=== PATIENT | male | born 1980 | race Caucasian/White ===

== ENCOUNTER 2016-12-09 17:23 | Emergency (ER) | payer MEDICAID, OTHER ==
[2015-03-15 08:28] VITALS: BMI 23.2
[2016-12-09 17:43] VITALS: BP 121/78; PULSE 77; RESP 17; TEMP 97.9; O2SAT 100
--- NOTE | 2016-12-09 18:54 | C.PDOC ---
History Of Present Illness 36 year old male who presents to the ER with a complaint of a red rash to his penis glans for the past few days. Patient states he had the same problem before and used clotrimazole and had relief of symptoms. Patient denies being diabetic, penile discharge, or urinary symptoms. Time Seen by Provider: 12/09/16 17:52 Chief Complaint (Nursing): Male Genitourinary History Per: Patient History/Exam Limitations: no limitations Onset/Duration Of Symptoms: Days Current Symptoms Are (Timing): Still Present Associated Symptoms: denies: Urinary Symptoms Alleviating Factors: None Recent travel outside of the [place]: No Past Medical History Reviewed: Historical Data, Nursing Documentation, Vital Signs Vital Signs: Last Vital Signs Temp 97.9 F 12/09/16 17:40 Pulse 77 12/09/16 17:40 Resp 17 12/09/16 17:40 BP 121/78 12/09/16 17:40 Pulse Ox 100 12/09/16 18:55 - Medical History PMH: No Chronic Diseases Surgical History: No Surg Hx Family History: States: Unknown Family Hx - Social History Hx Alcohol Use: No Hx Substance Use: No - Immunization History Hx Influenza Vaccination: No Review Of Systems Genitourinary: Positive for: Rash. Negative for: Dysuria, Hematuria, Penile Discharge Physical Exam - Physical Exam Appears: Non-toxic, No Acute Distress Skin: Warm, Dry Head: Atraumatic, Normacephalic Oral Mucosa: Moist Chest: Symmetrical, No Tenderness Cardiovascular: Rhythm Regular, No Murmur Respiratory: Normal Breath Sounds, No Rales, No Rhonchi, No Wheezing Male Genital: Other (Erythematous rash on glans) Neurological/Psych: Oriented x3, Normal Speech, Normal Cognition ED Course And Treatment O2 Sat by Pulse Oximetry: 100 (Room air) Pulse Ox Interpretation: Normal Progress Note: Finger stick done in ER which showed glucose of 94; patient given Rx and discharged home. Disposition - Disposition Disposition: HOME/ ROUTINE Disposition Time: 18:51 Condition: STABLE Additional Instructions: Follow up with PMD within 1-2 days. Return to ED if feel worse. Prescriptions: Clotrimazole/Betamethasone [Lotrisone] 1 appl EXT BID #45 g Instructions: Antifungals (On the skin) Print Language: CZECH - Clinical Impression Clinical Impression: Fungal infection - Scribe Statement The provider has reviewed the documentation as recorded by the Scribdelfina Yen All medical record entries made by the Anelibdelfina were at my direction and personally dictated by me. I have reviewed the chart and agree that the record accurately reflects my personal performance of the history, physical exam, medical decision making, and the department course for this patient. I have also personally directed, reviewed, and agree with the discharge instructions and disposition.
== END 2016-12-09 19:11 | disposition home or self-care (01) ==
LOC: C.ER 17:23
DX: B48.8 Other specified mycoses (principal)

== ENCOUNTER 2017-03-03 16:41 | Emergency (ER) | payer OTHER ==
[2017-03-03 16:41] VITALS: BMI 23.2
[2017-03-03 16:49] VITALS: BP 130/75; PULSE 88
[2017-03-03] MEDS ORDERED: Sodium Chloride 0.9% 1,000 ML IV ONE (17:14)
[2017-03-03 17:32] LABS: BASO % 0.3 % (0.0-2.0); EOS # 0.1 K/uL (0.0-0.7); EOS % 1.4 % (0.0-4.0); HEMATOCRIT 48.4 % (35.0-51.0); LYMPH # 1.9 K/uL (1.0-4.3); LYMPH % 17.7 % (20.0-40.0); MEAN CELL VOLUME 91.7 fL (80.0-94.0); MEAN CORPUSCULAR HEMOGLOBIN 31.2 pg (27.0-31.0); MEAN CORPUSCULAR HGB CONC 34.1 g/dL (33.0-37.0); MEAN PLATELET VOLUME 8.7 fL (7.2-11.7); MONO # 0.6 K/uL (0.0-0.8); MONO % 6.1 % (0.0-10.0); RED CELL DISTRIBUTION WIDTH 13.9 % (11.5-14.5); WHITE BLOOD COUNT 10.6 K/uL (4.8-10.8)
[2017-03-03 17:38] LABS: RBC URINE 4 /hpf (0-3); URINE BILIRUBIN NEGATIVE (NEGATIVE); URINE BLOOD 1+ (NEGATIVE); URINE COLOR Yellow (YELLOW); URINE GLUCOSE (UA) NORMAL (Normal); URINE KETONE NEGATIVE (NEGATIVE); URINE LEUKOCYTE ESTERASE NEG Leu/uL (Negative); URINE PROTEIN NEGATIVE (NEGATIVE)
[2017-03-03 17:39] LABS: CHLORIDE 102 mmol/L (98-107)
[2017-03-03 17:40] LABS: POTASSIUM 3.8 mmol/L (3.6-5.2); SODIUM 139 mmol/L (132-148)
[2017-03-03 17:42] LABS: ALB/GLOB RATIO 1.1 (1.0-2.1); BILIRUBIN,TOTAL 0.9 mg/dL (0.2-1.3); CARBON DIOXIDE 25 mmol/L (22-30); GFR AFRICAN-AMERICAN > 60; TOTAL PROTEIN 8.8 g/dL (6.3-8.3)
[2017-03-03 17:43] LABS: ALKALINE PHOSPHATASE 71 U/L (38-126); ALT/SGPT 74 U/L (21-72); AST/SGOT 32 U/L (17-59); BLOOD UREA NITROGEN 15 mg/dL (9-20); CALCIUM 9.6 mg/dl (8.6-10.4); GLUCOSE,RANDOM 96 mg/dL (75-110)
--- NOTE | 2017-03-03 18:06 | C.PDOC ---
History Of Present Illness 36 year old male presents to the ED with complaints of left flank pain for approximately 3/4 weeks accompanied by mild dysuria, also malodorous urine for the past couple of days. Patient has no prior history of kidney stones. He denies vomit, nausea, appetite change, hematuria, or blood in the stool. Chief Complaint (Nursing): Abdominal Pain History Per: Patient History/Exam Limitations: no limitations Onset/Duration Of Symptoms: Persistent Current Symptoms Are (Timing): Still Present Location Of Pain/Discomfort: Other (left flank) Radiation Of Pain To:: None Quality Of Discomfort: "Pain" Associated Symptoms: Urinary Symptoms (malodorous urine). denies: Fever, Chills , Nausea, Vomiting, Loss Of Appetite Recent travel outside of the [place]: No Additional History Per: Patient Past Medical History Reviewed: Historical Data, Nursing Documentation, Vital Signs Vital Signs: Last Vital Signs Temp 98.3 F 03/03/17 19:34 Pulse 88 03/03/17 19:34 Resp 17 03/03/17 19:34 BP 130/75 03/03/17 16:46 Pulse Ox 99 03/03/17 19:34 - Medical History PMH: No Chronic Diseases Denies: Chronic Kidney Disease Surgical History: No Surg Hx Family History: States: Unknown Family Hx - Social History Hx Alcohol Use: Yes Hx Substance Use: No - Immunization History Hx Influenza Vaccination: No Review Of Systems Constitutional: Negative for: Fever, Chills Gastrointestinal: Negative for: Nausea, Vomiting, Abdominal Pain, Hematemesis Genitourinary: Negative for: Dysuria, Hematuria Musculoskeletal: Positive for: Back Pain (left flank) Neurological: Negative for: Weakness, Numbness Physical Exam - Physical Exam Appears: Non-toxic, No Acute Distress Skin: Normal Color, Warm, Dry Head: Atraumatic, Normacephalic Oral Mucosa: Moist Neck: Normal, Supple Gastrointestinal/Abdominal: Soft, No Tenderness, No Guarding, No Rebound Back: CVA Tenderness (left mild) Extremity: Normal ROM, No Pedal Edema, No Calf Tenderness, Capillary Refill ( less than 2 seconds), No Deformity Neurological/Psych: Oriented x3, Normal Speech, Normal Cognition ED Course And Treatment - Laboratory Results Result Diagrams: 03/03/17 17:27 03/03/17 17:27 O2 Sat by Pulse Oximetry: 100 (On RA) Pulse Ox Interpretation: Normal - CT Scan/US CT abdo/Pelvis Other Rad Studies (CT/US): Interpreted By Me, Read By Radiologist, Radiology Report Reviewed CT/US Interpretation: IMPRESSION: 1. No acute findings. No renal, ureteral or bladder calculi. No hydronephrosis. No hydroureter. 2. Hepatic steatosis Medical Decision Making Medical Decision Making: Impression : 36 y/o male presents with left flank pain for the 3/4 weeks and malodorous urine for the past couple of days. Plan : * CT abdo/pelvis ordered * Blood work ordered * Pepcid 20 mg IVP, Toradol 30 mg IVP and Zofran 4mg IVP administered * Urine culture collected Disposition - Disposition Referrals: [facility] Romario Neely, [Non-Staff] - Disposition: HOME/ ROUTINE Disposition Time: 18:20 Condition: GOOD Additional Instructions: Thank you for letting us take care of you today. Your provider was Dr. Mckeon. The emergency medical care you received today was directed at your acute symptoms. If you were prescribed any medication, please fill it and take as directed. It may take several days for your symptoms to resolve. Return to the Emergency Department if your symptoms worsen, do not improve, or if you have any other problems. Please contact your doctor or call one of the physicians/clinics you have been referred to that are listed on the Patient Visit Information form that is included in your discharge packet. Bring any paperwork you were given at discharge with you along with any medications you are taking to your follow up visit. Our treatment cannot replace ongoing medical care by a primary care provider (PCP) outside of the emergency department. Thank you for allowing the [facility] team to be part of your care today. You had an STI test: It will take 48 hours for the results. Please call after 1 week if you have not heard back. Follow up with your doctor in 3-4 days for re-evaluation and further management. Prescriptions: Ciprofloxacin [Cipro] 500 mg PO BID #14 tab Diphenhydramine HCl/Zinc Acet [Benadryl Itch Stopping Crm] 28.3 gm TP BID PRN # 1 cream..g. PRN Reason: Itching / Pruritus Ibuprofen [Motrin] 600 mg PO Q6 PRN #20 tab PRN Reason: Pain, Moderate (4-7) Instructions: Abdominal Pain (ED) Forms: [employer] (Kyrgyz) - Clinical Impression Clinical Impression: Abdominal pain - Scribe Statement The provider has reviewed the documentation as recorded by the Scribe Bakari French All medical record entries made by the Scribe were at my direction and personally dictated by me. I have reviewed the chart and agree that the record accurately reflects my personal performance of the history, physical exam, medical decision making, and the department course for this patient. I have also personally directed, reviewed, and agree with the discharge instructions and disposition.
--- NOTE | 2017-03-03 18:20 | CT ---
EXAM: CT Abdomen and Pelvis Without Intravenous Contrast EXAM DATE/TIME: Exam ordered 03/03/2017 5:42 PM CLINICAL HISTORY: 36 years old, male; Pain; Abdominal pain; Flank; Left; Additional info: Left flank pain TECHNIQUE: Axial computed tomography images of the abdomen and pelvis without intravenous contrast. All CT scans at this facility use one or more dose reduction techniques, viz.: automated exposure control; ma/kV adjustment per patient size (including targeted exams where dose is matched to indication; i.e. head); or iterative reconstruction technique. Coronal and sagittal reformatted images were created and reviewed. COMPARISON: No relevant prior studies available. FINDINGS: Lower thorax: No acute findings. ABDOMEN: Liver: The liver is low in density. Gallbladder and bile ducts: Unremarkable. No calcified stones. No ductal dilation. Pancreas: Unremarkable. No ductal dilation. Spleen: Unremarkable. No splenomegaly. Adrenals: Unremarkable. No mass. Kidneys and ureters: Unremarkable. No obstructing stones. No hydronephrosis. Stomach and bowel: Unremarkable. No obstruction. No mucosal thickening. Appendix: No findings to suggest acute appendicitis. PELVIS: Bladder: Unremarkable. No stones. Reproductive: Unremarkable as visualized. ABDOMEN and PELVIS: Intraperitoneal space: Unremarkable. No free air. No significant fluid collection. Bones/joints: No acute fracture. No dislocation. Soft tissues: Unremarkable. Vasculature: Unremarkable. No abdominal aortic aneurysm. Lymph nodes: Unremarkable. No enlarged lymph nodes. IMPRESSION: 1. No acute findings. No renal, ureteral or bladder calculi. No hydronephrosis. No hydroureter. 2. Hepatic steatosis.
[2017-03-03 19:34] VITALS: RESP 17; TEMP 98.3
[2017-03-03 23:25] VITALS: O2SAT 100
== END 2017-03-03 19:34 | disposition home or self-care (01) ==
LOC: C.ER 16:41
DX: R10.9 Unspecified abdominal pain (principal)

== ENCOUNTER 2017-12-04 20:49 | Emergency (ER) | payer OTHER ==
[2017-12-04 20:51] VITALS: BMI 23.2
[2017-12-04 21:23] VITALS: BP 134/76; PULSE 67; RESP 20; TEMP 98.8; O2SAT 98
[2017-12-04] MEDS ORDERED: Tmp-Smz 800 mg-160 mg DS Tab PO STA (21:29)
[2017-12-04] MEDS ORDERED: Lidocaine 2% Inj (20ml) INFIL ONE (21:29)
--- NOTE | 2017-12-04 21:30 | C.PDOC ---
History Of Present Illness Patient complains of lump to left groin area noticed yesterday. Today area is larger and painful to touch. Denies fever, urinary symptoms, testicular pain or swelling, penile discharge, abdominal pain. Time Seen by Provider: 12/04/17 21:26 Chief Complaint (Nursing): Male Genitourinary History Per: Patient History/Exam Limitations: no limitations Onset/Duration Of Symptoms: Days Current Symptoms Are (Timing): Still Present Recent travel outside of the [place]: No Past Medical History Reviewed: Historical Data, Nursing Documentation, Vital Signs Vital Signs: Last Vital Signs Temp 98.8 F 12/04/17 21:17 Pulse 67 12/04/17 21:17 Resp 20 12/04/17 21:17 BP 134/76 12/04/17 21:17 Pulse Ox 98 12/04/17 22:41 Surgical History: No Surg Hx Family History: States: Unknown Family Hx - Social History Hx Alcohol Use: Yes Hx Substance Use: No - Immunization History Hx Influenza Vaccination: No Review Of Systems Except As Marked, All Systems Reviewed And Found Negative. Constitutional: Negative for: Fever Gastrointestinal: Negative for: Abdominal Pain Genitourinary: Negative for: Dysuria, Hematuria, Penile Discharge, Scrotal Pain (or swelling) Skin: Positive for: Other (Lump to left groin area) Physical Exam - Physical Exam Appears: Non-toxic Skin: Warm, Dry Head: Atraumatic, Normacephalic Eye(s): bilateral: Normal Inspection Neck: Normal ROM Chest: Symmetrical Gastrointestinal/Abdominal: Soft, No Tenderness, No Distention, No Guarding Male Genital: Other (2x1cm fluctuant mass to left inguinal area by scrotum) Extremity: Bilateral: Atraumatic, Normal ROM Neurological/Psych: Oriented x3, Normal Speech ED Course And Treatment O2 Sat by Pulse Oximetry: 98 (Room air) Pulse Ox Interpretation: Normal - Incision & Drainage Of Abscess Anesthesia: Lidocaine 2% Prep Used: Betadine Procedure: Incised W/Scalpel Blade#: (11), Drained Pus, Irrigated Cavity W/ Saline, Probed To Break Up Loculations, Cultures Obtained And Sent To Lab Medical Decision Making Medical Decision Making: abscess of left groin area. Obtain verbal consent for I&D. Patient tolerated procedure well. Bactrim PO given. Culture sent to lab. Disposition Counseled Patient/Family Regarding: Diagnosis, Need For Followup, Rx Given - Disposition Referrals: Liliya Silva MD [Staff Provider] - Disposition: HOME/ ROUTINE Disposition Time: 21:39 Condition: STABLE Additional Instructions: Cambiar el vendaje dos veces al da [place] Tylenol o Motrin para el dolor. 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 - Scribe Statement The provider has reviewed the documentation as recorded by the Scribe Jason Yen All medical record entries made by the Scribe were at my direction and personally dictated by me. I have reviewed the chart and agree that the record accurately reflects my personal performance of the history, physical exam, medical decision making, and the department course for this patient. I have also personally directed, reviewed, and agree with the discharge instructions and disposition.
[2017-12-04] MEDS ORDERED: Tmp-Smz 800 mg-160 mg DS Tab ONE (21:37)
== END 2017-12-04 21:59 | disposition home or self-care (01) ==
LOC: C.ER 20:49
DX: L02.214 Cutaneous abscess of groin (principal)

== ENCOUNTER 2018-01-20 13:43 | Emergency (ER) | payer OTHER ==
[2018-01-20 13:44] VITALS: BMI 23.2
[2018-01-20 13:53] VITALS: BP 145/91; PULSE 90; RESP 16; TEMP 98; O2SAT 97
--- NOTE | 2018-01-20 14:25 | C.PDOC ---
History Of Present Illness 37 year old male comes in with partner complaining of sore throat associated with a subjective fever and generalized weakness for the past 3 days. of note, patient's partner came in with him complaining of similar symptoms. Denies chills, nausea, vomiting, numbness. Time Seen by Provider: 01/20/18 13:53 Chief Complaint (Nursing): ENT Problem History Per: Patient History/Exam Limitations: None Onset/Duration Of Symptoms: Days Current Symptoms Are (Timing): Still Present Past Medical History Reviewed: Historical Data, Nursing Documentation, Vital Signs Vital Signs: Last Vital Signs Temp 98 F 01/20/18 13:50 Pulse 90 01/20/18 13:50 Resp 16 01/20/18 13:50 BP 145/91 H 01/20/18 13:50 Pulse Ox 97 01/20/18 17:18 - Medical History PMH: Denies: Chronic Kidney Disease Surgical History: No Surg Hx Family History: States: No Known Family Hx - Social History Hx Alcohol Use: Yes Hx Substance Use: No - Immunization History Hx Influenza Vaccination: No Review Of Systems Except As Marked, All Systems Reviewed And Found Negative. Constitutional: Positive for: Fever, Weakness. Negative for: Chills ENT: Positive for: Throat Pain (sore) Gastrointestinal: Negative for: Nausea, Vomiting Neurological: Negative for: Numbness Physical Exam - Physical Exam Appears: Non-toxic, No Acute Distress Skin: Warm, Dry Head: Atraumatic, Normacephalic Eye(s): bilateral: Normal Inspection, PERRL, EOMI Ear(s): Bilateral: Normal Oral Mucosa: Moist Throat: Erythema (pharyngeal), No Exudate, No Drooling, Other (uvula midline) Neck: Supple Lymphatic: Other (submandibular lymphadenopathy) Chest: Symmetrical Cardiovascular: Rhythm Regular Respiratory: Normal Breath Sounds, No Rales, No Rhonchi, No Wheezing Gastrointestinal/Abdominal: Soft, No Tenderness Neurological/Psych: Oriented x3, Normal Speech, Normal Cognition Gait: Steady ED Course And Treatment O2 Sat by Pulse Oximetry: 97 (RA) Pulse Ox Interpretation: Normal Progress Note: Plan: Amoxil, Ibuprofen ordered. Disposition - Disposition Referrals: Selvin Chamberlain MD [Medical Doctor] - Disposition: HOME/ ROUTINE Disposition Time: 14:22 Condition: STABLE Additional Instructions: Follow up with PMD within 1-2 days. Return to ED if feel worse. 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 - Scribe Statement The provider has reviewed the documentation as recorded by the Anelibe Emre Kaminski All medical record entries made by the Marisa were at my direction and personally dictated by me. I have reviewed the chart and agree that the record accurately reflects my personal performance of the history, physical exam, medical decision making, and the department course for this patient. I have also personally directed, reviewed, and agree with the discharge instructions and disposition.
== END 2018-01-20 14:41 | disposition home or self-care (01) ==
LOC: C.ER 13:43
DX: J02.9 Acute pharyngitis, unspecified (principal)

== ENCOUNTER 2018-04-09 20:46 | Emergency (ER) | payer OTHER ==
[2018-04-09 20:46] VITALS: BMI 23.2
[2018-04-09 20:57] VITALS: BP 129/90; PULSE 100; RESP 18; TEMP 97.3; O2SAT 97
--- NOTE | 2018-04-09 21:50 | C.PDOC ---
History Of Present Illness 37 year old male presents to the ER with a complaint of a swollen pimple to the upper lip for the past 3 days that has worsened today. Patient reports having associated subjective fever, as per relative patient had some minimal drainage but is unsure if it was saliva or drainage. Denies headache, gingival pain, or dental pain. Time Seen by Provider: 04/09/18 21:13 Chief Complaint (Nursing): Abnormal Skin Integrity History Per: Patient History/Exam Limitations: no limitations Onset/Duration Of Symptoms: Days (3) Current Symptoms Are (Timing): Still Present Location Of Injury: Anterior: Face Quality Of Symptoms: Painful, Swollen, Draining Recent travel outside of the [place]: No Past Medical History Reviewed: Historical Data, Nursing Documentation, Vital Signs Vital Signs: Last Vital Signs Temp 97.3 F L 04/09/18 20:55 Pulse 100 H 04/09/18 20:55 Resp 18 04/09/18 20:55 BP 129/90 04/09/18 20:55 Pulse Ox 97 04/09/18 20:55 - Medical History PMH: Denies: Chronic Kidney Disease Family History: States: Unknown Family Hx - Social History Hx Alcohol Use: Yes Hx Substance Use: No - Immunization History Hx Influenza Vaccination: No Review Of Systems Constitutional: Positive for: Fever (Subjective). Negative for: Chills ENT: Positive for: Other (Upper lip swelling). Negative for: Mouth Pain Musculoskeletal: Negative for: Neck Pain Neurological: Negative for: Headache Physical Exam - Physical Exam Appears: Non-toxic Skin: Normal Color, Warm, Dry Head: Atraumatic, Normacephalic Eye(s): bilateral: Normal Inspection Nose: Normal Oral Mucosa: Moist, No Drooling, No Other (elevation of floor of mouth) Tongue: No Swelling Lips: Other (Small scabby lesion to border of right upper lip with erythema at the base, localized induration, and tenderness, non fluctuant , no drainage. ) Teeth: Normal Dentition, No Tender To Palpation Gingiva: Normal Appearing, No Swelling, No Tender Throat: Normal, No Erythema, No Exudate Neck: Normal, Supple, No Other (Swelling) Neurological/Psych: Oriented x3, Normal Speech ED Course And Treatment O2 Sat by Pulse Oximetry: 97 (Room air) Pulse Ox Interpretation: Normal Progress Note: Patient is resting comfortably in the ER in no acute distress, vitals are stable, explained to patient that there is no indication for I&D at this time, will start on keflex and bactrim and advise to follow up for wound check. Disposition Counseled Patient/Family Regarding: Diagnosis, Need For Followup - Disposition Referrals: [facility] [Outside] Disposition: HOME/ ROUTINE Disposition Time: 21:47 Condition: STABLE Additional Instructions: Please follow up with PMD or ED in 2 days for wound check Take medications as directed Return to ER if worse Prescriptions: Acyclovir 5% [Zovirax 5% Oint] 15 applic EXT Q3H #1 tube Cephalexin [cephalexin] 1,000 mg PO BID #20 cap Sulfamethoxazole/Trimethoprim [Bactrim DS 800 mg-160 mg] 1 tab PO BID #14 tab Instructions: Boil (DC), Cold Sores (Oral Herpes) (DC) Forms: [employer] (Solomon Islander) Print Language: TAIWANESE - POA Present On Arrival: None - Clinical Impression Clinical Impression: Abscess, lip, Herpes simplex labialis - 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 - Scribe Statement The provider has reviewed the documentation as recorded by the Anelibdelfina Yen All medical record entries made by the Marisa were at my direction and personally dictated by me. I have reviewed the chart and agree that the record accurately reflects my personal performance of the history, physical exam, medical decision making, and the department course for this patient. I have also personally directed, reviewed, and agree with the discharge instructions and disposition.
[2018-04-09] MEDS ORDERED: Tmp-Smz 800 mg-160 mg DS Tab ONE (22:05)
[2018-04-09] MEDS ORDERED: Tmp-Smz 800 mg-160 mg DS Tab PO STA (22:08)
== END 2018-04-09 22:11 | disposition home or self-care (01) ==
LOC: C.ER 20:46
DX: K13.0 Diseases of lips (principal); B00.1 Herpesviral vesicular dermatitis

== ENCOUNTER 2018-04-11 14:03 | Emergency (ER) | payer OTHER ==
[2018-04-11 14:04] VITALS: BMI 23.2
[2018-04-11 14:22] VITALS: BP 123/77; PULSE 85; RESP 19; TEMP 97.9; O2SAT 97
[2018-04-11] MEDS ORDERED: Amoxicillin-Clav 875-125 mg Tab PO ONE (15:14)
[2018-04-11] MEDS ORDERED: Amoxicillin-Clav 875-125 mg Tab PO STA (15:15)
--- NOTE | 2018-04-11 15:19 | C.PDOC ---
History Of Present Illness 37 year old male presents to the ED for evaluation of right sided upper lip swelling for 5 days. Patient reports ED visit 2 days ago for same, was prescribed Keflex and Bacitracin, which he has been taking, with worsening of swelling. pt reports low grade fevers. pt has not applied warm compresses to the area. Denies any swelling in mouthy or difficulty swallowing. Time Seen by Provider: 04/11/18 14:39 Chief Complaint (Nursing): Abnormal Skin Integrity History Per: Patient History/Exam Limitations: no limitations, language barrier (Voe molder feeder) Onset/Duration Of Symptoms: Days Current Symptoms Are (Timing): Still Present Location Of Injury: Right: Face (upper lip) Quality Of Symptoms: Painful, Swollen Severity: Moderate Past Medical History Reviewed: Historical Data, Nursing Documentation, Vital Signs Vital Signs: Last Vital Signs Temp 97.9 F 04/11/18 14:18 Pulse 85 04/11/18 14:18 Resp 19 04/11/18 14:18 BP 123/77 04/11/18 14:18 Pulse Ox 97 04/11/18 14:18 - Medical History PMH: No Chronic Diseases Denies: Chronic Kidney Disease Family History: States: Unknown Family Hx - Social History Hx Alcohol Use: Yes Hx Substance Use: No - Immunization History Hx Tetanus Toxoid Vaccination: No Hx Influenza Vaccination: No Hx Pneumococcal Vaccination: No Review Of Systems Constitutional: Positive for: Fever (low grade- 99.5 per pt) Eyes: Negative for: Pain ENT: Positive for: Mouth Pain, Mouth Swelling, Other (right-sided upper lip swelling.). Negative for: Ear Pain, Nose Pain, Throat Pain Musculoskeletal: Negative for: Neck Pain Skin: Positive for: Other (right upper lip) Physical Exam - Physical Exam Appears: Non-toxic, No Acute Distress, Other (uncomfortable) Skin: Warm, Dry, Other (marked swelling to right side upper lip with dried whitish-yellow substance on outside, exquisitely tender, firm. erythema extends proximally towards right nare. ) Head: Atraumatic, Normacephalic Eye(s): bilateral: Normal Inspection Oral Mucosa: Moist Lips: Erythema (to the right side of the upper lip. ) Neck: Supple Neurological/Psych: Oriented x3, Normal Speech, Normal Cognition ED Course And Treatment O2 Sat by Pulse Oximetry: 97 (RA) Pulse Ox Interpretation: Normal Medical Decision Making Medical Decision Making: Plan: I didn't treat pt on first ED visit; however I did pass by him in Fast Track Area and noticed lip swelling. Compared to first ED visit, swelling has markedly increased, and pt now reports low grade fevers. Thus, pt has failed outpatient antibiotic therapy and advised admission for iv antibiotics and surgical consult. Dangers of spreading facial cellulitis explained to patient via molder feeder with present. Patient declines admission, wants a 'stronger' oral antibiotic and to go home. pt was advised he was able to leave, but would be AMA and risks and consequences of leaving including worsening cellulitis, further spread of infection to face, sinuses, brain, sepsis, disability and , explained to patient and via molder feeder #[id number]. pt advised he may return at any time. I will d/c keflex and add augmentin, recomme nd warm compresses and plastic surgery follow up. pt and understand. The patient declines admission, and wishes to leave the Emergency Department. This action is against my medical advice to the patient and the decision was made with informed refusal. The patient was told that admission is necessary and a full explanation of the rationale was given. The risks of leaving were explained to the patient and include, but are not limited to, worsening of known or currently unknown conditions, permanent disability and from undiagnosed or untreated conditions The patient has the capacity to make this informed decision and understands the clinical situation and my explanation of the risks of leaving. The patient voluntarily accepts these risks, and a signed AMA form documenting our conversation was obtained. The patient was given the opportunity to ask questions and reconsider. The patient was encouraged to return to the Emergency Department at any time for further care. Disposition Counseled Patient/Family Regarding: Diagnosis, Need For Followup, Rx Given - Disposition Referrals: Riley Cain MD [Staff Provider] - Disposition: AGAINST MEDICAL ADVICE Disposition Time: 15:20 Condition: STABLE Additional Instructions: Vivienne antibiticos segn lo prescrito. Tylenol o Motrin para la fiebre o el dolor. Compresas tibias en los labios 4 veces al da ayo 15-20 minutos. En colaboracin con el cirujano plstico Dr. Cain, llame a la solicitud. Regrese a la reyna de emergencias para cualquier sntoma peor. Take antibiotics as prescribed. Tylenol or Motrin for fever or pain. Warm compresses to lip 4 times per day for 15-20 minutes. FOllow up with Plastic surgeon Dr Cain, call forappintment. Return to ER for any worse symptoms. Prescriptions: Amoxicillin/Clavulanate [Augmentin 875 MG-125 MG] 1 tab PO BID #14 tab Instructions: Skin Abscess, Cellulitis (Skin Infection), Adult (DC), Leaving Against Medical Advice Forms: Gen Discharge Inst Bahamian, PassKit (Bahamian) Print Language: GREENLANDIC - Clinical Impression Clinical Impression: Cellulitis of face, Abscess of lip, Left against medical advice - PA / CELL[employer] P[employer] CUTTER / Resident Statement MD/DO has reviewed & agrees with the documentation as recorded. - Scribe Statement The provider has reviewed the documentation as recorded by the Scribe (Aubree Amador) All medical record entries made by the Scribe were at my direction and personally dictated by me. I have reviewed the chart and agree that the record accurately reflects my personal performance of the history, physical exam, medical decision making, and the department course for this patient. I have also personally directed, reviewed, and agree with the discharge instructions and disposition.
== END 2018-04-11 15:37 | disposition left against medical advice (07) ==
LOC: C.ER 14:03
DX: K13.0 Diseases of lips (principal)